=== PATIENT | female | born 1970 | race Asian ===

== ENCOUNTER 2024-05-02 09:35 | Emergency (ER) | payer OTHER ==
[2024-05-02 09:43] VITALS: BMI 22.0
[2024-05-02] MEDS: SODIUM CHLORIDE 1,000 ML IV STA (11:07)
[2024-05-02 11:13] LABS: EPI CELLS 5 /uL (0-25.1); HYALINE CASTS 0 /uL (0-3.1); URINE APPEARANCE CLEAR; URINE BACTERIA 885 /uL (0-1359); URINE BILIRUBIN NEGATIVE (NEGATIVE); URINE COLOR YELLOW; URINE GLUCOSE (UA) 3+ (NEGATIVE); URINE KETONE 2+ (NEGATIVE); URINE LEUK ESTERASE 1+ (NEGATIVE); URINE NITRITE NEGATIVE (NEGATIVE); URINE PROTEIN 1+ (NEGATIVE); URINE RBC 29 /uL (0-23.9); URINE WBC 471 /uL (0-25.8)
[2024-05-02] MEDS ORDERED: CEFTRIAXONE 1 GM in DEXTROSE 5%-WATER - 100 ML IVPB ONE (11:27)
[2024-05-02] MEDS ORDERED: ACETAMINOPHEN INJECTION 100 ML ONE (11:54)
[2024-05-02] MEDS ORDERED: NITROFURANTOIN MACROCRYSTAL 50 MG CAPSULE (FP) PO ONE (12:00)
[2024-05-02] MEDS: ACETAMINOPHEN 1000 MG/100 ML BAG IVPB ONE (12:05)
[2024-05-02] MEDS: NITROFURANTOIN MONOHYD/M-CRYST 100 MG CAPSULE PO SCH (12:07)
[2024-05-02] MEDS: NITROFURANTOIN MACROCRYSTAL 50 MG CAPSULE (FP) PO SCH (12:07)
[2024-05-02 12:36] LABS: HEMATOCRIT 33.3 % (32.4-45.2); HEMOGLOBIN 11.1 GM/dL (10.7-15.3); MCHC 33.4 g/dl (32.0-36.0); MEAN CELL VOLUME 83.7 fl (80-96); MEAN PLT VOLUME 8.1 fl (7.5-11.1); PLATELET COUNT 312 10^3/uL (134-434); RBC 3.98 M/mm3 (3.60-5.2); RDW 13.5 % (11.6-15.6); WHITE BLOOD COUNT 15.1 K/mm3 (4.0-10.0)
[2024-05-02 13:10] LABS: ANISOCYTOSIS 0; HELMET CELLS 0; HOWELL-JOLLY BODIES 0; MACROCYTOSIS 0; OVALOCYTE 0; ROULEAU 0; SICKELED CELLS 0; TARGET CELLS 0; TEAR DROP CELLS 0; TOXIC GRANULATION 0
[2024-05-02 13:12] LABS: POTASSIUM 4.5 mmol/L (3.5-5.1)
[2024-05-02 13:14] LABS: CALCIUM 8.9 mg/dL (8.5-10.1)
[2024-05-02 13:15] LABS: ALBUMIN 2.4 g/dl (3.4-5.0); BLOOD UREA NITROGEN 27.7 mg/dL (7-18)
[2024-05-02 13:18] LABS: CREATININE 1.1 mg/dL (0.55-1.3)
[2024-05-02 13:19] LABS: BILIRUBIN,TOTAL 0.8 mg/dL (0.2-1); TOT PROT 6.5 g/dl (6.4-8.2)
[2024-05-02] MEDS ORDERED: IBUPROFEN 400 MG TABLET (FP) PO ONE (14:19)
[2024-05-02] MEDS: IBUPROFEN 400 MG TABLET (FP) PO ONE (14:23)
[2024-05-02] MEDS: SODIUM CHLORIDE 1,000 ML IV ONE (14:24)
[2024-05-02 15:56] VITALS: BP 112/70; PULSE 95; RESP 19; TEMP 99.6
[2024-05-02 17:07] LABS: POTASSIUM 4.1 mmol/L (3.5-5.1)
[2024-05-02 17:13] LABS: BLOOD UREA NITROGEN 23.5 mg/dL (7-18); CALCIUM 7.9 mg/dL (8.5-10.1)
[2024-05-02 17:16] LABS: CREATININE 0.8 mg/dL (0.55-1.3)
[2024-05-02 17:18] LABS: TOT PROT 5.1 g/dl (6.4-8.2)
== END 2024-05-02 17:57 | disposition home or self-care (01) ==
LOC: JER 09:35
PROC: 3E033NZ Introduction of Analgesics, Hypnotics, Sedatives into Peripheral Vein, Percutaneous Approach (ICD-10-PCS; principal; 2024-05-02)
PROC: 3E0337Z Introduction of Electrolytic and Water Balance Substance into Peripheral Vein, Percutaneous Approach (ICD-10-PCS; 2024-05-02)
PROC: 3E0337Z Introduction of Electrolytic and Water Balance Substance into Peripheral Vein, Percutaneous Approach (ICD-10-PCS; 2024-05-02)
DX: N39.0 Urinary tract infection, site not specified (principal); R50.9 Fever, unspecified; R11.2 Nausea with vomiting, unspecified; R10.84 Generalized abdominal pain; Z20.822 Contact with and (suspected) exposure to COVID-19
CPT/HCPCS: 0241U-QW; 36415; 71045-TC-FY; 80053; 81003; 85025; 87040; 87086; 87186; 99284-25; J0131

== ENCOUNTER 2024-05-07 15:11 | Inpatient (IN) | payer OTHER ==
[2024-05-07] MEDS: LACTATED RINGERS SOLUTION 1000 ML INFUS.BAG IV ONE (17:37)
[2024-05-07 17:39] LABS: VENOUS BASE EXCESS 2.4 mmol/L (-2-2); VENOUS O2 SATURATION 68.5 % (70-80); VENOUS PCO2 42.2 mmHg (38-52); VENOUS PH 7.425 (7.310-7.410)
[2024-05-07 17:41] LABS: HEMATOCRIT 29.4 % (32.4-45.2); HEMOGLOBIN 9.9 GM/dL (10.7-15.3); MCH 27.8 pg (25.7-33.7); MCHC 33.6 g/dl (32.0-36.0); MEAN CELL VOLUME 82.7 fl (80-96); RBC 3.55 M/mm3 (3.60-5.2); WHITE BLOOD COUNT 17.9 K/mm3 (4.0-10.0)
[2024-05-07 17:42] LABS: BASO % 0.4 % (0-2.0); EOS % 0.5 % (0-4.5); LYMPH % 9.2 % (8-40); MEAN PLT VOLUME 6.8 fl (7.5-11.1); MONO % 5.2 % (3.8-10.2); NEUT % 84.7 % (42.8-82.8); PLATELET COUNT 585 10^3/uL (134-434); RDW 13.3 % (11.6-15.6)
[2024-05-07 17:52] LABS: POTASSIUM 4.2 mmol/L (3.5-5.1)
[2024-05-07 17:55] LABS: BLOOD UREA NITROGEN 17.2 mg/dL (7-18); MAGNESIUM 1.8 mg/dL (1.8-2.4)
[2024-05-07 17:56] LABS: ALBUMIN 2.5 g/dl (3.4-5.0); CALCIUM 9.2 mg/dL (8.5-10.1)
[2024-05-07 17:58] LABS: CREATININE 0.9 mg/dL (0.55-1.3)
[2024-05-07 17:59] LABS: BILIRUBIN,TOTAL 0.6 mg/dL (0.2-1); TOT PROT 6.8 g/dl (6.4-8.2)
[2024-05-07 18:02] LABS: EPI CELLS 0 /uL (0-25.1); HYALINE CASTS 0 /uL (0-3.1); URINE APPEARANCE CLEAR; URINE BACTERIA 47 /uL (0-1359); URINE BILIRUBIN NEGATIVE (NEGATIVE); URINE COLOR YELLOW; URINE GLUCOSE (UA) 3+ (NEGATIVE); URINE KETONE 2+ (NEGATIVE); URINE LEUK ESTERASE 1+ (NEGATIVE); URINE NITRITE NEGATIVE (NEGATIVE); URINE PROTEIN TRACE (NEGATIVE); URINE RBC 43 /uL (0-23.9); URINE UROBILINOGEN 0.2 mg/dL (0.2-1.0); URINE WBC 533 /uL (0-25.8)
[2024-05-07 18:15] LABS: ANISOCYTOSIS 1+; MACROCYTOSIS 0; TARGET CELLS 1+
[2024-05-07] MEDS ORDERED: CEFTRIAXONE 1 GM/50 ML BAG ONE (19:45)
[2024-05-07] MEDS: CEFTRIAXONE 1 GM in DEXTROSE 5%-WATER - 100 ML IVPB ONE (20:00)
[2024-05-07 20:39] LABS: HIV INTERPRETATION NEGATIVE (NEGATIVE)
[2024-05-07] MEDS ORDERED: INSULIN ASPART SLIDING SCALE (NOVOLOG) 1 VIAL SQ SCH (21:00)
[2024-05-07] MEDS: SODIUM CHLORIDE 1,000 ML IV STA (21:09)
[2024-05-07] MEDS: INSULIN ASPART SLIDING SCALE (NOVOLOG) 1 VIAL SQ SCH (22:57)
[2024-05-07] MEDS: INSULIN (LEVEMIR) 100 UNITS/ML UNITS SQ ONE (22:58)
[2024-05-07] MEDS: LOSARTAN POTASSIUM 50 MG TABLET PO ONE (23:00)
[2024-05-07] MEDS: SODIUM CHLORIDE 1,000 ML IV SCH (23:01)
[2024-05-08] MEDS: ACETAMINOPHEN 1000 MG/100 ML BAG IVPB PRN (00:51)
[2024-05-08 05:36] VITALS: BMI 22.5
[2024-05-08] MEDS: INSULIN (LEVEMIR) 100 UNITS/ML UNITS SQ SCH (07:52)
[2024-05-08] MEDS: LOSARTAN POTASSIUM 50 MG TABLET PO SCH (09:27)
[2024-05-08] MEDS: CEFTRIAXONE 1 GM in DEXTROSE 5%-WATER - 50 ML IVPB SCH (09:28)
[2024-05-08 09:44] LABS: BASO % 0.2 % (0-2.0); EOS % 0.5 % (0-4.5); HEMATOCRIT 30.4 % (32.4-45.2); HEMOGLOBIN 10.4 GM/dL (10.7-15.3); LYMPH % 8.1 % (8-40); MCH 28.6 pg (25.7-33.7); MCHC 34.1 g/dl (32.0-36.0); MEAN CELL VOLUME 83.9 fl (80-96); MEAN PLT VOLUME 7.1 fl (7.5-11.1); MONO % 5.3 % (3.8-10.2); NEUT % 85.9 % (42.8-82.8); PLATELET COUNT 652 10^3/uL (134-434); RBC 3.63 M/mm3 (3.60-5.2); RDW 13.4 % (11.6-15.6); WHITE BLOOD COUNT 18.8 K/mm3 (4.0-10.0)
[2024-05-08] MEDS ORDERED: INSULIN (LEVEMIR) 100 UNITS/ML UNITS SQ SCH (10:00)
[2024-05-08 10:34] LABS: ALBUMIN 2.4 g/dl (3.4-5.0); BLOOD UREA NITROGEN 11.4 mg/dL (7-18); MAGNESIUM 1.8 mg/dL (1.8-2.4)
[2024-05-08 10:36] LABS: TOT PROT 6.5 g/dl (6.4-8.2)
[2024-05-08 10:37] LABS: CREATININE 0.7 mg/dL (0.55-1.3)
[2024-05-08 10:38] LABS: PHOSPHOROUS 2.4 mg/dL (2.5-4.9)
[2024-05-08 10:39] LABS: BILIRUBIN,TOTAL 0.8 mg/dL (0.2-1)
[2024-05-08] MEDS: SODIUM CHLORIDE 0.45% 1,000 ML IV SCH (13:25)
[2024-05-09 05:53] LABS: HEMATOCRIT 25.2 % (32.4-45.2); HEMOGLOBIN 8.4 GM/dL (10.7-15.3); MCH 28.1 pg (25.7-33.7); MCHC 33.3 g/dl (32.0-36.0); MEAN CELL VOLUME 84.6 fl (80-96); MEAN PLT VOLUME 7.1 fl (7.5-11.1); PLATELET COUNT 503 10^3/uL (134-434); RBC 2.98 M/mm3 (3.60-5.2); RDW 13.6 % (11.6-15.6); WHITE BLOOD COUNT 15.2 K/mm3 (4.0-10.0)
[2024-05-09 06:05] LABS: POTASSIUM 4.1 mmol/L (3.5-5.1)
[2024-05-09 06:08] LABS: CALCIUM 8.5 mg/dL (8.5-10.1)
[2024-05-09 06:09] LABS: BLOOD UREA NITROGEN 9.6 mg/dL (7-18); MAGNESIUM 1.7 mg/dL (1.8-2.4)
[2024-05-09 06:12] LABS: CREATININE 0.7 mg/dL (0.55-1.3)
[2024-05-09 06:13] LABS: BILIRUBIN,TOTAL 0.6 mg/dL (0.2-1); TOT PROT 5.6 g/dl (6.4-8.2)
[2024-05-09] MEDS ORDERED: INSULIN (LEVEMIR) 100 UNITS/ML UNITS SQ SCH (07:00)
[2024-05-09] MEDS: ACETAMINOPHEN 325 MG TABLET (FP) PO ONE (07:20)
[2024-05-09] MEDS: PANTOPRAZOLE SODIUM 40 MG VIAL IVPUSH SCH (09:55)
[2024-05-09] MEDS: CEFTRIAXONE 2 GM in DEXTROSE 5%-WATER 100 ML IVPB SCH (10:51)
[2024-05-09] MEDS: PANTOPRAZOLE 40 MG TABLET PO SCH (11:21)
[2024-05-09] MEDS: MAGNESIUM OXIDE 400 MG TABLET (FP) PO SCH (11:21)
[2024-05-09] MEDS: MAGNESIUM SULF 50% (8.12 MEQ/2 ML-1 GM VIAL) IVPB ONE (11:27)
[2024-05-09] MEDS ORDERED: metFORMIN HCL 500 MG TABLET (FP) PO SCH (16:30)
[2024-05-09 19:35] LABS: BASO % 0.4 % (0-2.0); EOS % 0.8 % (0-4.5); HEMATOCRIT 26.9 % (32.4-45.2); HEMOGLOBIN 8.9 GM/dL (10.7-15.3); LYMPH % 12.5 % (8-40); MCH 28.1 pg (25.7-33.7); MCHC 33.1 g/dl (32.0-36.0); MEAN PLT VOLUME 7.1 fl (7.5-11.1); MONO % 6.7 % (3.8-10.2); NEUT % 79.6 % (42.8-82.8); PLATELET COUNT 543 10^3/uL (134-434); RBC 3.16 M/mm3 (3.60-5.2); RDW 13.7 % (11.6-15.6); WHITE BLOOD COUNT 14.7 K/mm3 (4.0-10.0)
[2024-05-09 19:45] LABS: INR 1.13 (0.83-1.09); PROTHROMBIN TIME (PATIENT) 12.9 SEC (9.7-13.0)
[2024-05-09 19:48] LABS: ACTIVATED PTT 29.8 SECONDS (25.2-36.5)
[2024-05-10] MEDS: INSULIN (LEVEMIR) 100 UNITS/ML UNITS SQ SCH (06:21)
[2024-05-10 10:33] LABS: BASO % 0.7 % (0-2.0); EOS % 0.6 % (0-4.5); HEMATOCRIT 26.8 % (32.4-45.2); HEMOGLOBIN 8.9 GM/dL (10.7-15.3); LYMPH % 8.5 % (8-40); MCH 28.1 pg (25.7-33.7); MEAN CELL VOLUME 85.2 fl (80-96); MEAN PLT VOLUME 7.1 fl (7.5-11.1); MONO % 5.4 % (3.8-10.2); NEUT % 84.8 % (42.8-82.8); PLATELET COUNT 579 10^3/uL (134-434); RBC 3.15 M/mm3 (3.60-5.2); RDW 13.8 % (11.6-15.6); WHITE BLOOD COUNT 12.1 K/mm3 (4.0-10.0)
[2024-05-10 10:39] LABS: POTASSIUM 4.1 mmol/L (3.5-5.1)
[2024-05-10 10:45] LABS: ALBUMIN 2.2 g/dl (3.4-5.0)
[2024-05-10 10:46] LABS: BLOOD UREA NITROGEN 8.4 mg/dL (7-18)
[2024-05-10 10:49] LABS: CREATININE 0.8 mg/dL (0.55-1.3)
[2024-05-10 10:50] LABS: BILIRUBIN,TOTAL 0.4 mg/dL (0.2-1); TOT PROT 6.1 g/dl (6.4-8.2)
[2024-05-10] MEDS ORDERED: MIDAZOLAM HCL 2 MG/2 ML SINGLE DOSE VIAL ONE (15:11)
[2024-05-10] MEDS ORDERED: FENTANYL CITRATE/PF 50 MCG/ML VIAL ONE (15:11)
[2024-05-10] MEDS: SODIUM CHLORIDE 500 ML IV SCH (16:30)
[2024-05-10] MEDS: FENTANYL CITRATE/PF 50 MCG/ML VIAL IVPUSH ONE (16:31)
[2024-05-10] MEDS ORDERED: NORMAL SALINE FLUSH 0.9% 10 ML SYRINGE IVPUSH PRN (17:21)
[2024-05-10] MEDS: INSULIN (LEVEMIR) 100 UNITS/ML UNITS SQ ONE (17:54)
[2024-05-11] MEDS ORDERED: INSULIN (NOVOLOG) ASPART 100 UNITS/ML 10ML VIAL SQ ONE (00:05)
[2024-05-11 10:10] LABS: BASO % 0.9 % (0-2.0); EOS % 0.7 % (0-4.5); HEMATOCRIT 25.8 % (32.4-45.2); HEMOGLOBIN 8.3 GM/dL (10.7-15.3); LYMPH % 12.9 % (8-40); MCH 27.6 pg (25.7-33.7); MCHC 32.1 g/dl (32.0-36.0); MONO % 7.2 % (3.8-10.2); NEUT % 78.3 % (42.8-82.8); PLATELET COUNT 550 10^3/uL (134-434); RDW 13.8 % (11.6-15.6); WHITE BLOOD COUNT 11.3 K/mm3 (4.0-10.0)
[2024-05-11 10:23] LABS: POTASSIUM 4.4 mmol/L (3.5-5.1)
[2024-05-11 10:27] LABS: ALBUMIN 2.5 g/dl (3.4-5.0); BLOOD UREA NITROGEN 8.7 mg/dL (7-18); CALCIUM 9.1 mg/dL (8.5-10.1)
[2024-05-11 10:31] LABS: CREATININE 0.9 mg/dL (0.55-1.3)
[2024-05-11 10:32] LABS: BILIRUBIN,TOTAL 0.5 mg/dL (0.2-1); TOT PROT 6.5 g/dl (6.4-8.2)
[2024-05-11 22:01] VITALS: RESP 20
[2024-05-12] MEDS ORDERED: INSULIN (LEVEMIR) 100 UNITS/ML UNITS SQ SCH (07:18)
[2024-05-12 09:15] LABS: EOS % 0.9 % (0-4.5); HEMATOCRIT 25.8 % (32.4-45.2); HEMOGLOBIN 8.5 GM/dL (10.7-15.3); LYMPH % 12.3 % (8-40); MCH 27.8 pg (25.7-33.7); MCHC 32.9 g/dl (32.0-36.0); MEAN CELL VOLUME 84.6 fl (80-96); MEAN PLT VOLUME 7.2 fl (7.5-11.1); MONO % 6.7 % (3.8-10.2); NEUT % 79.1 % (42.8-82.8); PLATELET COUNT 576 10^3/uL (134-434); RBC 3.05 M/mm3 (3.60-5.2); WHITE BLOOD COUNT 9.8 K/mm3 (4.0-10.0)
[2024-05-12] MEDS: IRON SUCROSE INJECTION 200 MG in SODIUM CHLORIDE 100 ML IVPB ONE (12:17)
[2024-05-12 13:14] VITALS: BP 129/79; PULSE 102; TEMP 98.2
== END 2024-05-12 18:00 | disposition home health service (06) | DRG 690 ==
LOC: JER 15:11 → INTOOBSV 19:38 → UNDOADMOB 19:38 → JERBED 19:38 → J8W 21:51 → JERBED 21:51 → J8W 05-08 12:59 → JERBED 05-08 14:48 → OBSVTOIN 05-11 13:55
PROVIDERS: ADMIT Family Medicine; ATTEND Family Medicine
PROC: 0T903ZZ Drainage of Right Kidney, Percutaneous Approach (ICD-10-PCS; 2024-05-10)
PROC: 02HV33Z Insertion of Infusion Device into Superior Vena Cava, Percutaneous Approach (ICD-10-PCS; principal; 2024-05-12)
PROC: B518ZZA Fluoroscopy of Superior Vena Cava, Guidance (ICD-10-PCS; 2024-05-12)
DX: N39.0 Urinary tract infection, site not specified (principal); E87.1 Hypo-osmolality and hyponatremia; N15.1 Renal and perinephric abscess; I10 Essential (primary) hypertension; N12 Tubulo-interstitial nephritis, not specified as acute or chronic; E11.65 Type 2 diabetes mellitus with hyperglycemia; E86.0 Dehydration; R50.9 Fever, unspecified; B96.20 Unspecified Escherichia coli [E. coli] as the cause of diseases classified elsewhere; R74.8 Abnormal levels of other serum enzymes; R94.31 Abnormal electrocardiogram [ECG] [EKG]; D50.9 Iron deficiency anemia, unspecified
CPT/HCPCS: 36415; 36569; 49405; 74176-TC; 74177-TC; 80053; 80061; 81003; 82010; 82436; 82607; 82728; 82803; 82962; 82977; 83036; 83540; 83550; 83615; 83735; 83935; 84080; 84100; 84133; 84300; 84439; 84443; 84466; 84540; 84703; 85025; 85027; 85045; 85610; 85730; 86140; 86704; 86708; 86803; 87040; 87070; 87075; 87086; 87186; 87205; 87340; 87389; 87517; 93005; 93010; 99285-25; G0378; J0131; J1756; Q9967